=== PATIENT | male | born 1955 | race Hispanic/Latino ===

== ENCOUNTER 2018-01-11 07:57 | Day surgery (SDC) | payer MEDICARE ==
[2014-01-26 13:50] VITALS: BMI 35.7
[2018-01-11] MEDS ORDERED: Midazolam 2 MG/2 ML VIAL ONE (10:01)
[2018-01-11] MEDS ORDERED: Propofol 10 mg/ml Inj (20 ML) ONE (10:01)
[2018-01-11] MEDS ORDERED: Sodium Chloride 0.9% 1,000 ML IV SCH (11:45)
[2018-01-11 12:36] VITALS: BP 125/85; PULSE 80; RESP 18; TEMP 98; O2SAT 94
== END 2018-01-11 13:35 | disposition home or self-care (01) ==
LOC: ENDO 07:57
PROVIDERS: ATTEND Internal Medicine Gastroenterology
DX: D12.2 Benign neoplasm of ascending colon (principal); K62.3 Rectal prolapse; K62.6 Ulcer of anus and rectum; K62.5 Hemorrhage of anus and rectum; K29.30 Chronic superficial gastritis without bleeding; K31.9 Disease of stomach and duodenum, unspecified; R10.13 Epigastric pain; E11.9 Type 2 diabetes mellitus without complications
CPT/HCPCS: 43239; 45380; 82948; 88305; 88342; J0295; J2001; J2250; J2704; J3010; J7030; J7040